=== PATIENT | female | born 1980 | race Caucasian/White ===

== ENCOUNTER 2017-02-24 23:24 | Emergency (ER) | payer SELFPAY ==
[~2017-02-24] VITALS: Ht 160 cm; Wt 90.0 kg
[2017-02-24 23:25] VITALS: BP 143/81; PULSE 82; RESP 16; TEMP 98.6; O2SAT 98
[2017-02-25] MEDS ORDERED: GUAISYP4 PO (00:29)
[2017-02-25] MEDS ORDERED: VENTAER INH ×2 (00:29→00:52)
[2017-02-25] MEDS ORDERED: AUGM875T3 PO (00:29)
[2017-02-25] MEDS ORDERED: AMOXICILLIN/CLAVULANATE K 875 MG TAB PO ONE (00:30)
[2017-02-25] MEDS ORDERED: LIDOCAINE VISCOUS 2% SOLN 15 ML UDC PO ONE (00:30)
--- NOTE | 2017-02-25 00:30 | PD ---
HPI Chief Complaint: ENT Complaint Time Seen by Provider: 00:16 Travel History International Travel<30 days: No Contact w/Intl Traveler<30days: No Traveled to known affect area: No History of Present Illness HPI 2 WEEKS OF COUGH, NOW PROD WITH GREEN SPUTUM, AND NOW 2 DAYS OF SORE THROAT AND BODY ACHES. PREVIOUS H/O ASTHMA, AND OCCASIONAL SMOKER PFSH Social History Tobacco Use: No Allergies-Medications (Allergen,Severity, Reaction): Coded Allergies: No Known Allergies (Verified Allergy, Unknown, 02/24/17) Reported Meds & Prescriptions Reported Meds & Active Scripts Active Ventolin Hfa 18 GM Inh (Albuterol Sulfate) 90 Mcg/Act Aer 1 Puff INH Q4H PRN Guaifenesin AC Liq (Guaifenesin-Codeine Liq) 100-10 Mg/5 Ml Syrp 10 Ml PO Q6H PRN Augmentin (Amoxicillin-Clavulanate) 875-125 Mg Tab 1 Tab PO BID Reported Ventolin Hfa 18 GM Inh (Albuterol Sulfate) 90 Mcg/Act Aer 2 Puff INH Q4-6H PRN Review of Systems Except as stated in HPI: all other systems reviewed are Neg Respiratory: Positive: Cough Physical Exam Narrative GENERAL: SKIN: Warm and dry. HEAD: Atraumatic. Normocephalic. EYES: Pupils equal and round. No scleral icterus. No injection or drainage. ENT: No nasal bleeding or discharge. Mucous membranes pink and moist. EXUDATE OVER OROPHARYNX NECK: Trachea midline. No JVD. ANT CERVICAL LAD CARDIOVASCULAR: Regular rate and rhythm. RESPIRATORY: No accessory muscle use. Clear to auscultation. Breath sounds equal bilaterally. MILD RONCHI GASTROINTESTINAL: Abdomen soft, non-tender, nondistended. Hepatic and splenic margins not palpable. MUSCULOSKELETAL: Extremities without clubbing, cyanosis, or edema. No obvious deformities. NEUROLOGICAL: Awake and alert. No obvious cranial nerve deficits. Motor grossly within normal limits. Five out of 5 muscle strength in the arms and legs. Normal speech. PSYCHIATRIC: Appropriate mood and affect; insight and judgment normal. Data Data Last Documented VS Vital Signs Date Time Temp Pulse Resp B/P (MAP) Pulse Ox O2 Delivery O2 Flow Rate FiO2 02/25/17 00:52 81 22 120/74 (89) 96 02/24/17 23:25 98.6 Room Air Orders Orders Lidocaine 2% Viscous (Xylocaine 2% Visco (02/25/17 00:30) Amoxicil-Clavulanate (Augmentin) (02/25/17 00:30) MDM Medical Decision Making Medical Screen Exam Complete: Yes Emergency Medical Condition: Yes Medical Record Reviewed: Yes Differential Diagnosis PHARYNGITIS V BRONCHITIS V VIRAL SYNDROME Narrative Course PATIENT STABLE AND NEGATIVE EXAM FINDINGS FOR PNA, HOWEVER, C/W PHARYNGITIS Diagnosis Primary Impression: Exudative pharyngitis Patient Instructions: Acute Bronchitis (ED), General Instructions Scripts Albuterol 18 GM Inh (Ventolin Hfa 18 GM Inh) 90 Mcg/Act Aer 1 PUFF INH Q4H Y for SHORTNESS OF BREATH, #1 INHALER 0 Refills Prov: Arthur Mendoza MD 02/25/17 Guaifenesin-Codeine Liq (Guaifenesin AC Liq) 100-10 Mg/5 Ml Syrp 10 ML PO Q6H Y for COUGH, #1 BOTTLE 0 Refills Prov: Arthur Mendoza MD 02/25/17 Amoxicillin-Clavulanate (Augmentin) 875-125 Mg Tab 1 TAB PO BID for Infection, #10 TAB 0 Refills Prov: Arthur Mendoza MD 02/25/17 Disposition: 01 DISCHARGE HOME Condition: Stable Arthur Mendoza MD Feb 25, 2017 00:30
[2017-02-25 00:52] VITALS: BP 120/74
== END 2017-02-25 01:15 | disposition home or self-care (01) ==
LOC: NEPE 23:24
DX: J02.9 Acute pharyngitis, unspecified (principal)
CPT/HCPCS: 99284